=== PATIENT | male | born 1965 | race Caucasian/White ===

== ENCOUNTER → 2018-02-17 08:34 | Outpatient (CLI) | payer BC, SELFPAY ==
[2018-02-17 10:03] LABS: ALT 82 U/L (12-78); AST 69 U/L (15-37); Albumin 3.9 g/dL (3.4-5.0); Alkaline Phosphatase 82 U/L (46-116); Anion Gap 8.9 mmol/L (3-11); BUN 10 mg/dL (7-18); CO2 28.1 mmol/L (21.0-32.0); Calcium 9.1 mg/dL (8.5-10.1); Chloride 102 mmol/L (98-107); Cholesterol 187 mg/dL (50-200); Glucose 141 mg/dL (70-100); HDL Cholesterol 35 mg/dL (40-60); LDL CHOLESTEROL 128 mg/dL (<100); Potassium 5.1 mmol/L (3.5-5.1); Sodium 139 mmol/L (136-145); Total Protein 7.1 g/dL (6.4-8.2); Triglyceride 181 mg/dL (30-150)
[2018-02-17 10:15] LABS: Bilirubin, Total 0.5 mg/dL (0.2-1.0); CREATININE 0.88 mg/dL (0.70-1.30)
[2018-02-18 11:30] LABS: Hepatitis C Ab w Rflx HCV PCR Negative (NEGAT)
== END ==
PROVIDERS: PCP Family Medicine; Visit Provider Family Medicine
DX: I10 Essential (primary) hypertension (principal); Z11.59 Encounter for screening for other viral diseases
CPT/HCPCS: 36415; 80053; 80061; 83721; 86803

== ENCOUNTER 2020-10-10 03:39 | Outpatient (CLI) | payer BC, SELFPAY ==
[2020-10-10 09:26] LABS: ALT 59 U/L (16-63); AST 35 U/L (15-37); Alkaline Phosphatase 85 U/L (46-116); BUN 11 mg/dL (7-18); Bilirubin, Total 0.8 mg/dL (0.2-1.0); CREATININE 0.9 mg/dL (0.70-1.30); Calculated LDL 125 mg/dL (<100); Chloride 99 mmol/L (98-107); Cholesterol 188 mg/dL (<200); Glucose 160 mg/dL (74-106); HDL Cholesterol 39 mg/dL (40-60); Potassium 4.7 mmol/L (3.5-5.1); Sodium 135 mmol/L (136-145); Total Protein 7.1 g/dL (6.4-8.2); Triglyceride 120 mg/dL (<150)
== END 2020-10-10 03:40 | disposition home or self-care (01) ==
LOC: LBO 03:39
PROVIDERS: PCP Family Medicine; Visit Provider Family Medicine
DX: R73.01 Impaired fasting glucose (principal)
CPT/HCPCS: 36415; 80053; 80061

== ENCOUNTER 2020-11-09 02:29 | Outpatient (CLI) | payer BC, SELFPAY ==
--- NOTE | 2020-11-09 15:00 | NS.NUTBLAN_ITS ---
ASSESSMENT: Sd ( anusha Mcdaniels) is 55 y/o M with referral for new dx DM2. Currently on Metformin 500mg BID . He has been on this for 2 weeks and reports no GI issues.His main concern today is to prevent DM from killing me. He has family hx DM on father's side. 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 Random finger stick at this encounter revealed 153 mg/dl ~ 3 hrs postprandial. His lunch today was venison with fiddleheads and he ate grapes,, a banana and an orange throughout the day after lunch. He does not eat breakfast and is now having vegetables and meat for supper. He is a smoker and reports drinking copious amounts of [place] throughout the day. He has been taking his metformin as directed and has a glucometer at home which he did not bring to the visit today and has not yet used. He does not not eat sugary snacks and has been avoiding CHO's with meals. He requires basic DM education to help him understand some self management techniques moving forward with this new dx. He has lost 3 lbs as a result of avoiding his usual hiogh CHO snack choices and is currently 122% IBW. Nutrition DX: Hyperglycemia r/t DM AEB: BG 153 ~ 4 hours Postprandial, on metformin. INTERVENTION: Educated Arslan on CHO counting and recommended <60g CHO/ Meal period for <180g CHO/day. Reviewed and assisted patient in using glucometer and finger stick to get BG reading. Reviewed desired FBG and Post prandial BG ranges. Explained Retinopathy, neuropathy and nephropathy as lonterm complications r/t elevated BG levels. Explained and reviewed CHO counting techniques and demonstrated ShareThis phone josé to help with this task. Provided literature and BG record keeping log. Recommended A1c lab and taking BG at fasting and after supper to help track and uncover BG trends r/t food and medicine. suggested cutting down on beer intake and reviewed CHO content of Atlantic Light. Explained concept of nutrient dense vs empty calorie foods. Explained desirable A1C goals for PWD. MONITOR/EVAL: Arslan agrees to use finger sticks 2x/day and record results. He stated that he will contact PCP for A1c lab order. He is planning to return to this RD in 30 days for follow up and to track progress. He has contact info to send along first week BG results. He is paying attention to his CHO intake and agrees to try to reduce his consumption of Atlantic light by 12 oz /day to goal of 7% weight loss, A1c<6.5, FBG </+ 100 mg/dl and BG ~ 1.5-2hrs postprandial <150 mg/dl
== END 2020-11-09 02:30 | disposition home or self-care (01) ==
LOC: DS 02:29
PROVIDERS: PCP Family Medicine; Visit Provider Dietitian, Registered
DX: E11.9 Type 2 diabetes mellitus without complications (principal); Z71.3 Dietary counseling and surveillance
CPT/HCPCS: 97802

== ENCOUNTER 2023-12-29 15:53 | Outpatient (REF) | payer BC, SELFPAY | END 2023-12-29 15:54 | disposition home or self-care (01) | LOC: LBN 15:53 | PROVIDERS: PCP Family Medicine; Visit Provider Physician Assistant | DX: L08.9 Local infection of the skin and subcutaneous tissue, unspecified (principal); T14.8XXA Other injury of unspecified body region, initial encounter | CPT/HCPCS: 87077; 87070; 87186; 87205 ==

== ENCOUNTER 2024-04-07 07:31 | Outpatient (REF) | payer BC, SELFPAY | END 2024-04-07 07:32 | disposition home or self-care (01) | LOC: LBN 07:31 | PROVIDERS: PCP Family Medicine; Referring Provider Physical Therapy Assistant; Visit Provider Physical Therapy Assistant | DX: L97.928 Non-pressure chronic ulcer of unspecified part of left lower leg with other specified severity (principal); I10 Essential (primary) hypertension; I73.9 Peripheral vascular disease, unspecified; E11.9 Type 2 diabetes mellitus without complications | CPT/HCPCS: 87077; 87070; 87075; 87186; 87205 ==

== ENCOUNTER 2024-04-28 07:52 | Day surgery (SDC) | payer BC, SELFPAY ==
--- NOTE | 2024-04-27 16:34 | W.PM.DSUDISC ---
Date of service: 04/28/24 Time of Service: 10:15 Discharge Plan Disposition Patient Disposition: Home Condition: Good Discharge Details Reason For Visit: Chronic left lower extremity wound Attending Provider: Dontae Cruz Primary Care Provider: Chalo Ward Home Meds and New Rx's Prescriptions: Continued nicotine 21 mg/24 hr patch 24 hour 1 patch transdermal DAILY Qty: 28 0RF (DME) blood-glucose meter Misc See Rx Instructions .ROUTE .MEDSUPPLY Qty: 1 0RF Rx Instructions: As directed to check blood glucose. No insulin. Dispense covered brand. (DME) Blood Glucose Test Strip See Rx Instructions .ROUTE .MEDSUPPLY Qty: 100 3RF Rx Instructions: As directed to check blood glucose daily. No insulin. Dispense covered brand. (DME) lancets Misc See Rx Instructions .ROUTE .MEDSUPPLY Qty: 100 3RF Rx Instructions: As directed to check blood glucose daily. No insulin. Dispense covered brand. lisinopril 20 mg tablet 20 mg PO DAILY Qty: 90 3RF amlodipine 5 mg tablet 5 mg PO DAILY Qty: 90 3RF Rx Instructions: as directed for bp control ranolazine 500 mg tablet extended release 12 hr 500 mg PO BID Qty: 180 3RF Discharge Instructions Additional Instructions: Sd, it was nice seeing you today, and I appreciate your patience. Hopefully, the procedure that we did today will help relieve some of the bacterial burden on the surface, and promote some new growth from the skin edge. Like we talked about in the operating room, we will dress this wound with a thin layer of honey and some simple gauze and bandaging on top of that. Please change this once a day. Will see you in the office on Friday morning and reassess at that point. Activity:: Activity as Tolerated Remove Dressings/Wound Care:: 24 hours Shower/Bathe:: 24 hours Diet:: As Tolerated Discharge Orders Discharge Orders: Discharge Order (Routine); Ordered 04/27/24 Ordered By: Dontae Cruz DS: Diagnosis Discharge Diagnosis (1) Ulcer of left lower leg: Status: Acute Asessment and Plan: Follow-up in the office on Friday
[2024-04-28 08:02] VITALS: BP 119/58; PULSE 61; RESP 18; TEMP 36.6; O2SAT 98
[2024-04-28] MEDS: Lidocaine/Prilocaine Cream 5 GM TUBE TP (09:06)
[2024-04-28] MEDS: Bupivacaine LIPOSOME/PF 133 MG/10 ML VIAL IJ (10:03)
[2024-04-28] MEDS: Bupivacaine 0.5% Pres-Free 30 ML VIAL (10:03)
--- NOTE | 2024-04-28 10:16 | W.PROCNOTE ---
Date of service: 04/28/24 Time of Service: 10:16 Procedure Note Date of procedure: 04/28/24 Procedure: Versajet debridement of left lower extremity wound Surgeon/Proceduralist/Physician: Dontae Cruz Procedure Diagnosis: Chronic traumatic wound of left lower extremity Procedure Indications: Sd is a 59-year-old male who sustained a traumatic wound to his left lower extremity along the medial aspect of the calf. He has been managed as an outpatient with negative pressure wound therapy, but there was some evolution of some fibrinous debris on the surface of the wound and some maceration of the posterior aspect of the skin. Procedure Description: Sd was brought back into the operating room on the stretcher, and the left lower extremity was prepped and draped. I started by establishing a generous field block using combination of local anesthetic with Exparel. Next, I debrided the wound with Versajet. We did the initial debridement set with the Versajet set to 2, and Sd tolerated that pretty well. I increased the debridement setting to 4, and took another pass over the wound. I brought the skin edges back to healthy bleeding tissue. At the conclusion of debridement, the wound was about 2.5 cm x 3.5 cm by approximately 0.25 cm in depth. The wound bed appeared clean, we dressed it with a thin coating of Medihoney and some fluffed gauze. Will see him again in the office on Friday and reassess the wound at that point.
== END 2024-04-28 10:27 | disposition home or self-care (01) ==
PROVIDERS: PCP Family Medicine; Visit Provider Surgery
PROC: (CPT 97597; principal; 2024-04-28 09:00)
DX: L97.829 Non-pressure chronic ulcer of other part of left lower leg with unspecified severity (principal); I73.9 Peripheral vascular disease, unspecified; E11.9 Type 2 diabetes mellitus without complications; F10.90 Alcohol use, unspecified, uncomplicated; F17.210 Nicotine dependence, cigarettes, uncomplicated; I10 Essential (primary) hypertension
CPT/HCPCS: 97597; C9290; J0665

== ENCOUNTER 2024-05-21 07:14 | Outpatient (REF) | payer BC, SELFPAY | END 2024-05-21 07:15 | disposition home or self-care (01) | LOC: LBN 07:14 | PROVIDERS: PCP Family Medicine; Visit Provider Physical Therapy Assistant | DX: L97.929 Non-pressure chronic ulcer of unspecified part of left lower leg with unspecified severity (principal); Z51.89 Encounter for other specified aftercare; I73.9 Peripheral vascular disease, unspecified; E11.9 Type 2 diabetes mellitus without complications; F17.200 Nicotine dependence, unspecified, uncomplicated; I10 Essential (primary) hypertension | CPT/HCPCS: 87077; 87070; 87075; 87186; 87205 ==

== ENCOUNTER 2024-05-24 16:44 | Outpatient (CLI) | payer BC, SELFPAY ==
[2024-05-24 17:08] LABS: Abs Immature Grans 0.05 10^3/uL (0.0-0.06); Absolute Basophil Count 0.07 10^3/uL (0.0-0.2); Absolute Eosinophil Count 0.43 10^3/uL (0.0-0.7); Absolute Lymphocyte Count 3.18 10^3/uL (1.2-3.4); Absolute Neutrophil Count 7.01 10^3/uL (1.2-6.7); Basophils % 0.6 %; Eosinophils % 3.6 %; HCT 40.5 % (40.0-50.0); Immature Grans % 0.4 %; Lymphocytes % 26.4 %; MCH 32.9 pg (27.0-33.0); MCHC 34.6 % (32.0-36.0); MCV 95 fL (80-95); MPV 8.8 fL (8.0-11.0); Monocytes % 10.8 %; Neutrophils % 58.2 %; Platelet Count 315 10^3/uL (130-400); RBC 4.26 10^6/uL (4.36-5.78); RDW 12.7 % (11.8-14.1); RDW-SD 44.5 fL; WBC 12.04 10^3/uL (4.4-10.8)
[2024-05-24 17:24] LABS: ALT 19 U/L (16-63); AST 14 U/L (15-37); Albumin 3.6 g/dL (3.4-5.0); Alkaline Phosphatase 79 U/L (46-116); Anion Gap 8.5 mmol/L (3-11); BUN 9 mg/dL (7-18); Bilirubin, Total 0.44 mg/dL (0.2-1.0); CO2 27.5 mmol/L (21.0-32.0); CREATININE 0.7 mg/dL (0.70-1.30); Calcium 9.2 mg/dL (8.5-10.1); Chloride 97 mmol/L (98-107); Glucose 116 mg/dL (74-106); Potassium 3.9 mmol/L (3.5-5.1); Sodium 133 mmol/L (136-145); Total Protein 7.4 g/dL (6.4-8.2)
== END 2024-05-24 16:45 | disposition home or self-care (01) ==
LOC: LBO 16:46
PROVIDERS: PCP Family Medicine; Visit Provider Physical Therapy Assistant
DX: L97.929 Non-pressure chronic ulcer of unspecified part of left lower leg with unspecified severity (principal)
CPT/HCPCS: 36415; 80053; 85025

== ENCOUNTER 2024-06-01 09:35 | Emergency (ER) | payer BC, SELFPAY ==
[2024-06-01] VITALS (10 sets, daily range): BP systolic 109–149; BP diastolic 46–87; PULSE 80–91; RESP 16–20; TEMP 36.5–36.8; O2SAT 93–98
[2024-06-01 10:18] LABS: Abs Immature Grans 0.03 10^3/uL (0.0-0.06); Absolute Basophil Count 0.02 10^3/uL (0.0-0.2); Absolute Eosinophil Count 0.08 10^3/uL (0.0-0.7); Absolute Lymphocyte Count 1.33 10^3/uL (1.2-3.4); Absolute Monocyte Count 0.99 10^3/uL (0.1-0.8); Absolute Neutrophil Count 7.27 10^3/uL (1.2-6.7); Basophils % 0.2 %; Eosinophils % 0.8 %; HCT 37.4 % (40.0-50.0); HGB 13.6 g/dL (13.5-17.5); Immature Grans % 0.3 %; Lymphocytes % 13.7 %; MCH 32.7 pg (27.0-33.0); MCHC 36.4 % (32.0-36.0); MCV 90 fL (80-95); MPV 8.9 fL (8.0-11.0); Monocytes % 10.2 %; Neutrophils % 74.8 %; Platelet Count 310 10^3/uL (130-400); RBC 4.16 10^6/uL (4.36-5.78); RDW 12.1 % (11.8-14.1); RDW-SD 39.7 fL; WBC 9.72 10^3/uL (4.4-10.8)
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
[2024-06-01 10:27] LABS: Anion Gap 12.7 mmol/L (3-11); BUN 8 mg/dL (7-18); CO2 23.3 mmol/L (21.0-32.0); CREATININE 0.6 mg/dL (0.70-1.30); Calcium 9.1 mg/dL (8.5-10.1); Chloride 88 mmol/L (98-107); Estimated GFR 111.89 (mL/min/1.73m2); Glucose 101 mg/dL (74-106); Potassium 4.3 mmol/L (3.5-5.1)
[2024-06-01 10:29] LABS: Sodium 124 mmol/L (136-145)
[2024-06-01] MEDS: Nicotine 21 MG/24 HR PATCH TD (14:00)
[2024-06-01] MEDS: MORPHine 4 MG/ML SYR IVP (17:35)
== END 2024-06-01 17:48 | disposition short-term general hospital (02) ==
PROVIDERS: Emergency Provider Emergency Medicine; PCP Family Medicine
DX: I70.222 Atherosclerosis of native arteries of extremities with rest pain, left leg (principal)
CPT/HCPCS: 36415; 80048; 87040; 93971; 96374; 99285; 85025; J2270

== ENCOUNTER 2024-10-18 08:38 | Outpatient (REF) | payer BC, SELFPAY | END 2024-10-18 08:39 | disposition home or self-care (01) | LOC: LBN 08:38 | PROVIDERS: PCP Family Medicine; Referring Provider Physical Therapy Assistant; Visit Provider Physical Therapy Assistant | DX: Z51.89 Encounter for other specified aftercare (principal); L97.828 Non-pressure chronic ulcer of other part of left lower leg with other specified severity | CPT/HCPCS: 87070; 87075; 87205 ==